=== PATIENT | female | born 1960 | race Caucasian/White ===

== ENCOUNTER 2020-10-29 08:10 | Outpatient (REF) | payer OTHER, SELFPAY ==
[2020-11-01 06:47] LABS: HPV mRNA E6/E7 rflx Not Detected (Not Detected)
== END 2020-10-29 08:11 | disposition home or self-care (01) ==
LOC: HO.LAB 08:10
PROVIDERS: PCP Internal Medicine; Visit Provider Obstetrics & Gynecology
DX: N95.0 Postmenopausal bleeding (principal)
CPT/HCPCS: 87624; 88142; 99202

== ENCOUNTER 2020-10-31 08:04 | Outpatient (REF) | payer OTHER, SELFPAY ==
--- NOTE | ~2020-10-31 | MM_ITS ---
EXAMINATION: MM SCREENING DIGITAL BREAST TOMOSYNTHESIS, BILATERAL CLINICAL INFORMATION: Screening. Asymptomatic. The lifetime risk of breast cancer based on the Tyrer-Cuzick Model is 5%. COMPARISON: Outside mammography: 06/17/2016, 01/28/2010 ([facility]). TECHNIQUE: Digital breast tomosynthesis is performed in both the craniocaudal and mediolateral oblique views along with computer-aided detection (CAD). Synthesized 2D images are generated from the tomosynthesis. FINDINGS: There are scattered areas of fibroglandular density (ACR BI-RADS breast composition Category b). There are no significant masses, abnormal calcifications, or other abnormalities. The axilla and skin contours are unremarkable. The skin contours are smooth. No significant changes. MM/MM tomosynthesis screening BI IMPRESSION: No mammographic evidence of malignancy. ASSESSMENT: BI-RADS 1: Negative RECOMMENDATION: Routine annual mammography screening. This patient's information was entered into a reminder system with a target due date for their next mammogram.
== END 2020-10-31 08:05 | disposition home or self-care (01) ==
LOC: HO.MAMMO 08:04
PROVIDERS: PCP Internal Medicine; Visit Provider Obstetrics & Gynecology
DX: Z12.31 Encounter for screening mammogram for malignant neoplasm of breast (principal)
CPT/HCPCS: 77063; 77067

== ENCOUNTER 2020-11-19 10:33 | Outpatient (REF) | payer OTHER, SELFPAY ==
--- NOTE | ~2020-11-19 | US_ITS ---
EXAMINATION: US PELVIC ULTRASOUND CLINICAL INFORMATION: Postmenopausal bleeding. COMPARISON: None TECHNIQUE: Transabdominal and transvaginal pelvic ultrasound was performed. Transvaginal exam was performed for better visualization of the uterus and ovaries. FINDINGS: The uterus is anteverted and measures 6.8 x 2.2 x 4 cm in dimension. No focal uterine lesion is seen. The endometrium is upper normal in size for a postmenopausal patient measuring 0.5 cm. The endometrium is heterogeneous appearing. There are nabothian cysts in the cervix. The ovaries are seen transabdominally only and are normal appearing. The right ovary measures 2.7 x 1.2 x 1.3 cm and the left ovary measures 2.3 x 1.3 x 2 cm. There is no fluid in the pelvis. US/US pelvic and transvaginal IMPRESSION: Heterogeneous-appearing endometrium which is upper normal in thickness for a postmenopausal patient.
== END 2020-11-19 10:34 | disposition home or self-care (01) ==
LOC: HO.US 10:33
PROVIDERS: Visit Provider Obstetrics & Gynecology
DX: N95.0 Postmenopausal bleeding (principal)
CPT/HCPCS: 76830; 76856

== ENCOUNTER 2020-12-03 11:03 | Outpatient (REF) | payer OTHER, SELFPAY | END 2020-12-03 11:04 | disposition home or self-care (01) | LOC: HO.LAB 11:03 | PROVIDERS: Visit Provider Obstetrics & Gynecology | DX: N95.0 Postmenopausal bleeding (principal) | CPT/HCPCS: 58100; 88305 ==

== ENCOUNTER → 2020-12-17 11:40 | Outpatient (BNVA) | payer OTHER, SELFPAY | PROVIDERS: Visit Provider Obstetrics & Gynecology ==

== ENCOUNTER 2023-02-07 10:52 | Outpatient (REF) | payer OTHER, SELFPAY ==
--- NOTE | ~2023-02-07 | MR_ITS ---
EXAMINATION: MR BRAIN WITH AND WITHOUT CONTRAST CLINICAL INFORMATION: Migraines with aura COMPARISON: None. TECHNIQUE: MRI of the brain was obtained using routine sequences before and following administration of intravenous contrast. A total of 10 mL of Gadavist was administered intravenously. FINDINGS: No acute infarct. The GRE sequence is without susceptibility artifact to suggest acute or chronic blood products. No extra-axial fluid collection. Mild generalized parenchymal volume loss. A couple scattered T2 FLAIR hyperintense foci in the subcortical and periventricular white matter, nonspecific and may reflect the sequela of minimal chronic microangiopathy with some possibly attributable to reported history of migraine headaches.. No abnormal intraparenchymal or leptomeningeal enhancement. No significant mass effect or herniation pattern. The intracranial dural venous sinus and arterial flow voids are preserved. 2 mm pineal gland cyst. The orbits are grossly unremarkable. Trace ethmoid air cell mucosal thickening. A couple opacified bilateral mastoid air cells. Incompletely imaged cervical spondylosis with hypertrophic facet arthropathy and fusion across the left C2-C3 facet joint. 4 mm dermal based nodule along the left cheek. MR/MR head/brain wo/w con IMPRESSION: No acute intracranial process or pathologic intracranial enhancement. Mild age-appropriate global cerebral volume loss and minimal nonspecific white matter disease which may be at least partially attributable to chronic migraine headaches, chronic microangiopathy, or gliosis of other etiology.
[2023-02-07] MEDS: gadobutroL 10 ML VIAL IVPUSH (12:04)
== END 2023-02-07 10:53 | disposition home or self-care (01) ==
LOC: HO.MRI 10:52
PROVIDERS: PCP Internal Medicine; Visit Provider Psychiatry & Neurology Neurology
DX: G43.909 Migraine, unspecified, not intractable, without status migrainosus (principal)
CPT/HCPCS: 70553; A9585